=== PATIENT | female | born 1940 | race Caucasian/White ===

== ENCOUNTER 2022-08-11 18:37 | Inpatient (IN) ==
[2022-08-11] MEDS ORDERED: SODIUM CHLORIDE 0.9% 500 ML IV STA (19:17)
[2022-08-11 19:47] LABS: Alanine Aminotransferase 21 U/L (13-56); Albumin 3.7 G/DL (3.4-5.0); Alkaline Phosphatase 91 U/L (45-117); Aspartate Amino Transferase 39 U/L (0-37); Blood Urea Nitrogen 48 MG/DL (7-18); Calcium 9.9 MG/DL (8.5-10.1); Carbon Dioxide 23 MMOL/L (21-32); Chloride 101 MMOL/L (98-107); Glucose 191 MG/DL (74-106); Potassium 4.7 MMOL/L (3.5-5.1); Sodium 136 MMOL/L (136-145)
[2022-08-11 19:47] LABS: Basophils % 0.2 % (0.0-0.8); Eosinophils % 0.1 % (0.00-10.9); Hematocrit 35.9 VOL% (35.7-47.0); Hemoglobin 11.6 GM/DL (12.0-16.0); Immature Granulocytes % 0.4 %; Immature Granulocytes Absolute 0.06 #; Lymphocytes # 1.8 10*3/uL (1.4-4.0); Mean Corpuscular HGB Conc 32.3 GM/DL (32-36); Mean Corpuscular Volume 93.5 FL (87-102); Mean Platelet Volume 11.2 FL (9.6-12.0); Monocytes # 1.4 10*3/uL (0.11-0.8); Monocytes % 8.6 % (1.7-12.7); Neutrophils % 79.7 % (38.7-73.9); Platelet Count 364 T/CUMM (130-400); Red Blood Count 3.84 MC/CUMM (3.8-5.5); Red Cell Distribution Width 13.9 % (9.3-17.3); White Blood Count 16.5 T/CUMM (4-12)
[2022-08-11 19:57] LABS: INR 0.9; PT Patient Result 10.3 SECS (10.1-12.1)
[2022-08-11] MEDS ORDERED: SODIUM CHLORIDE 0.9% 1,450 ML IV STA (20:16)
[2022-08-11] MEDS ORDERED: VANCOMYCIN INJ 1,000 MG in SODIUM CHLORIDE 0.9% 250 ML IV STA (20:19)
[2022-08-11] MEDS ORDERED: ONDANSETRON 4 MG/2 ML VIAL IV PRN (20:29)
[2022-08-11] MEDS ORDERED: SIMETHICONE CHEW 125 MG TABLET PO PRN (20:29)
[2022-08-11 20:32] LABS: Bacteria,Urine Occasional /HPF (Few); Mucus,Urine Occasional /LPF (Occasional); RBC,Urine 4 /HPF (0-4); Squamous Epithelial Cell,Urine Occasional /HPF (0-10)
[2022-08-11 20:34] LABS: Bilirubin,Urine Small mg/dL (Negative); Blood, Urine Negative (Negative); Glucose,Urine (UA) Negative (Negative); Ketones,Urine 15 mg/dL (Negative); Nitrite,Urine Negative (Negative); Protein,Urine 30 mg/dL (Negative); Urine Appearance Clear (Clear); Urine Color Yellow (Yellow); Urine Specific Gravity 1.025 (1.001-1.035); Urine Urobilinogen 0.2 eU/dL (<2.0); Urine pH 5.5 (4.5-8.0)
[2022-08-11 20:47] LABS: Barbiturates Screen,Urine Negative (Negative); Benzodiazepines Screen,Urine Negative (Negative); Cannabinoid Screen,Urine Negative (Negative); Opiate Screen,Urine Positive (Negative); Phencyclidine Screen,Urine Negative (Negative)
[2022-08-11] MEDS: HEPARIN 5,000 UNIT/1 ML VIAL SUBCUT SCH (22:01)
[2022-08-11] MEDS: DOCUSATE SODIUM 100 MG CAPSULE PO SCH (22:01)
[2022-08-11] MEDS ORDERED: METOPROLOL TARTRATE 5 MG/5 ML VIAL IV PRN (22:49)
[2022-08-11] MEDS: SODIUM CHLORIDE 0.9% 1,000 ML IV SCH (23:10)
[2022-08-12 01:31] LABS: Basophils % 0.2 % (0.0-0.8); Eosinophils % 0.2 % (0.00-10.9); Hematocrit 34.5 VOL% (35.7-47.0); Immature Granulocytes % 0.3 %; Immature Granulocytes Absolute 0.04 #; Lymphocytes # 1.1 10*3/uL (1.4-4.0); Lymphocytes % 9.3 % (21.3-54.2); Mean Corpuscular HGB Conc 31.9 GM/DL (32-36); Mean Corpuscular Volume 93.2 FL (87-102); Mean Platelet Volume 11.2 FL (9.6-12.0); Platelet Count 250 T/CUMM (130-400); Red Cell Distribution Width 13.9 % (9.3-17.3)
[2022-08-12 01:57] LABS: Calcium 8.3 MG/DL (8.5-10.1); Osmolality,Calculated 287.8 MOS/KG (273-304); Potassium 3.6 MMOL/L (3.5-5.1); Thyroid Stimulating Hormone 0.614 uIU/ml (0.358-3.74)
[2022-08-12] MEDS ORDERED: GLUCAGON 1 MG VIAL IM PRN (07:12)
[2022-08-12] MEDS ORDERED: DEXTROSE 10% 250 ML BAG IV PRN (07:12)
[2022-08-12] MEDS: PANTOPRAZOLE 40 MG TABLET PO SCH (08:29)
[2022-08-12] MEDS: DOCUSATE SODIUM 100 MG CAPSULE PO SCH ×2 (08:29→21:28)
[2022-08-12] MEDS: INSULIN LISPRO 100 UNIT/ML SUBCUT SCH ×4 (08:30→21:34)
[2022-08-12] MEDS: HEPARIN 5,000 UNIT/1 ML VIAL SUBCUT SCH ×2 (08:35→21:28)
[2022-08-12] MEDS ORDERED: ROSUVASTATIN 10 MG TABLET PO SCH (09:00)
[2022-08-12] MEDS ORDERED: ASPIRIN EC 81 MG TABLET PO SCH (09:00)
[2022-08-12] MEDS: SODIUM CHLORIDE 0.9% 1,000 ML IV SCH ×2 (10:14→22:57)
[2022-08-12] MEDS: cefTRIAXone 1,000 MG in SODIUM CHLORIDE 0.9% 100 ML IV SCH (21:27)
[2022-08-13] MEDS: hydrALAZINE 20 MG/1 ML VIAL IV PRN ×4 (00:08→16:50)
[2022-08-13] MEDS ORDERED: LABETALOL 20 MG/4 ML SYRINGE IV ONE (04:33)
[2022-08-13] MEDS: INSULIN LISPRO 100 UNIT/ML SUBCUT SCH ×4 (07:37→22:46)
[2022-08-13] MEDS: DOCUSATE SODIUM 100 MG CAPSULE PO SCH ×2 (08:21→22:45)
[2022-08-13] MEDS: HEPARIN 5,000 UNIT/1 ML VIAL SUBCUT SCH ×2 (08:21→22:46)
[2022-08-13] MEDS: PANTOPRAZOLE 40 MG TABLET PO SCH (08:21)
[2022-08-13] MEDS: SODIUM CHLORIDE 0.9% 1,000 ML IV SCH (11:37)
[2022-08-13] MEDS ORDERED: guaiFENesin 200 MG/10 ML UDCUP PO PRN (15:03)
[2022-08-13 16:26] LABS: Folate > 24.00 NG/ML (5.38-24.0); Vitamin B12 1023 PG/ML (211-911)
[2022-08-13 16:33] LABS: % Iron Saturation 10.5 % (18-50); Ferritin 159.8 ng/mL (8-252)
[2022-08-13] MEDS: AZITHROMYCIN INJ 500 MG in SODIUM CHLORIDE 0.9% 250 ML IV SCH (16:57)
[2022-08-13] MEDS: cefTRIAXone 1,000 MG in SODIUM CHLORIDE 0.9% 100 ML IV SCH (22:34)
[2022-08-13] MEDS: ASCORBIC ACID 500 MG TABLET PO SCH (22:45)
[2022-08-13] MEDS: ACETAMINOPHEN 325 MG TABLET PO PRN (22:46)
[2022-08-14] MEDS: LEVOTHYROXINE 75 MCG TABLET PO SCH (06:25)
[2022-08-14] MEDS: SODIUM CHLORIDE 0.9% 1,000 ML IV SCH ×2 (06:25→22:57)
[2022-08-14 06:45] LABS: Basophils % 0.3 % (0.0-0.8); Eosinophils # 0.1 10*3/uL (0.0-0.87); Eosinophils % 0.8 % (0.00-10.9); Hematocrit 31.5 VOL% (35.7-47.0); Hemoglobin 10.3 GM/DL (12.0-16.0); Immature Granulocytes % 0.4 %; Immature Granulocytes Absolute 0.03 #; Mean Corpuscular HGB Conc 32.7 GM/DL (32-36); Mean Platelet Volume 12.1 FL (9.6-12.0); Monocytes # 0.7 10*3/uL (0.11-0.8); Monocytes % 9.5 % (1.7-12.7); Platelet Count 297 T/CUMM (130-400); Red Blood Count 3.46 MC/CUMM (3.8-5.5); Red Cell Distribution Width 13.8 % (9.3-17.3); White Blood Count 7.5 T/CUMM (4-12)
[2022-08-14 06:59] LABS: Calcium 9.3 MG/DL (8.5-10.1); Osmolality,Calculated 283.1 MOS/KG (273-304); Potassium 3.3 MMOL/L (3.5-5.1)
[2022-08-14 07:03] LABS: VLDL Cholesterol 18.4 MG/DL
[2022-08-14] MEDS: INSULIN LISPRO 100 UNIT/ML SUBCUT SCH ×4 (07:56→21:22)
[2022-08-14] MEDS: CHOLECALCIFEROL 400 UNIT TABLET PO SCH (09:21)
[2022-08-14] MEDS: HEPARIN 5,000 UNIT/1 ML VIAL SUBCUT SCH ×2 (09:21→21:22)
[2022-08-14] MEDS: DOCUSATE SODIUM 100 MG CAPSULE PO SCH ×2 (09:22→21:22)
[2022-08-14] MEDS: hydrALAZINE 20 MG/1 ML VIAL IV PRN (09:22)
[2022-08-14] MEDS: ZINC SULFATE 220 MG CAPSULE PO SCH (09:22)
[2022-08-14] MEDS: CETIRIZINE 10 MG TABLET PO SCH (09:22)
[2022-08-14] MEDS: ASCORBIC ACID 500 MG TABLET PO SCH ×2 (09:22→21:23)
[2022-08-14] MEDS: PANTOPRAZOLE 40 MG TABLET PO SCH (09:22)
[2022-08-14] MEDS ORDERED: POTASSIUM CHLORIDE 20 MEQ TABLET PO ONE (10:25)
[2022-08-14] MEDS: AZITHROMYCIN INJ 500 MG in SODIUM CHLORIDE 0.9% 250 ML IV SCH (18:27)
[2022-08-14] MEDS: ACETAMINOPHEN 325 MG TABLET PO PRN (21:23)
[2022-08-15] MEDS: hydrALAZINE 20 MG/1 ML VIAL IV PRN ×3 (01:15→15:32)
[2022-08-15] MEDS: LEVOTHYROXINE 75 MCG TABLET PO SCH (06:07)
[2022-08-15 06:38] LABS: Basophils % 0.3 % (0.0-0.8); Eosinophils # 0.1 10*3/uL (0.0-0.87); Eosinophils % 1.9 % (0.00-10.9); Hemoglobin 9.3 GM/DL (12.0-16.0); Immature Granulocytes % 0.5 %; Immature Granulocytes Absolute 0.03 #; Lymphocytes # 1.3 10*3/uL (1.4-4.0); Lymphocytes % 21.7 % (21.3-54.2); Mean Corpuscular HGB Conc 33.2 GM/DL (32-36); Mean Corpuscular Volume 90.9 FL (87-102); Mean Platelet Volume 11.8 FL (9.6-12.0); Monocytes # 0.7 10*3/uL (0.11-0.8); Monocytes % 12.3 % (1.7-12.7); Neutrophils % 63.3 % (38.7-73.9); Platelet Count 322 T/CUMM (130-400); Red Blood Count 3.08 MC/CUMM (3.8-5.5); White Blood Count 5.8 T/CUMM (4-12)
[2022-08-15 06:54] LABS: Osmolality,Calculated 281.3 MOS/KG (273-304); Potassium 3.2 MMOL/L (3.5-5.1)
[2022-08-15] MEDS: ASCORBIC ACID 500 MG TABLET PO SCH ×2 (10:13→23:19)
[2022-08-15] MEDS: ZINC SULFATE 220 MG CAPSULE PO SCH (10:13)
[2022-08-15] MEDS: CETIRIZINE 10 MG TABLET PO SCH (10:14)
[2022-08-15] MEDS: DOCUSATE SODIUM 100 MG CAPSULE PO SCH ×2 (10:14→21:18)
[2022-08-15] MEDS: CHOLECALCIFEROL 400 UNIT TABLET PO SCH (10:14)
[2022-08-15] MEDS: HEPARIN 5,000 UNIT/1 ML VIAL SUBCUT SCH ×2 (10:15→21:18)
[2022-08-15] MEDS: PANTOPRAZOLE 40 MG TABLET PO SCH (10:15)
[2022-08-15] MEDS: INSULIN LISPRO 100 UNIT/ML SUBCUT SCH ×4 (10:15→21:19)
[2022-08-15] MEDS: amLODIPine 2.5 MG TABLET PO SCH (12:45)
[2022-08-15] MEDS: SODIUM CHLORIDE 0.9% 1,000 ML IV SCH (12:45)
[2022-08-15] MEDS ORDERED: POTASSIUM CHLORIDE 20 MEQ TABLET PO ONE (13:09)
[2022-08-15] MEDS ORDERED: CARBOXYMETHYLCELLULOSE 1% OPH SOLN BOTH EYES PRN (13:19)
[2022-08-15] MEDS: AZITHROMYCIN INJ 500 MG in SODIUM CHLORIDE 0.9% 250 ML IV SCH (16:32)
[2022-08-15] MEDS: traZODone 50 MG TABLET PO SCH (21:18)
[2022-08-16] MEDS: LEVOTHYROXINE 75 MCG TABLET PO SCH (06:17)
[2022-08-16 06:19] LABS: Basophils % 0.6 % (0.0-0.8); Eosinophils # 0.2 10*3/uL (0.0-0.87); Hematocrit 29.2 VOL% (35.7-47.0); Hemoglobin 9.5 GM/DL (12.0-16.0); Immature Granulocytes % 0.2 %; Immature Granulocytes Absolute 0.01 #; Lymphocytes # 1.3 10*3/uL (1.4-4.0); Lymphocytes % 24.1 % (21.3-54.2); Mean Corpuscular HGB Conc 32.5 GM/DL (32-36); Mean Corpuscular Volume 91.8 FL (87-102); Mean Platelet Volume 11.7 FL (9.6-12.0); Monocytes # 0.7 10*3/uL (0.11-0.8); Monocytes % 12.2 % (1.7-12.7); Neutrophils % 59.9 % (38.7-73.9); Platelet Count 318 T/CUMM (130-400); Red Blood Count 3.18 MC/CUMM (3.8-5.5); Red Cell Distribution Width 14.1 % (9.3-17.3); White Blood Count 5.3 T/CUMM (4-12)
[2022-08-16 06:35] LABS: Calcium 9.2 MG/DL (8.5-10.1); Potassium 3.4 MMOL/L (3.5-5.1)
[2022-08-16] MEDS: INSULIN LISPRO 100 UNIT/ML SUBCUT SCH ×4 (08:30→21:49)
[2022-08-16] MEDS: CHOLECALCIFEROL 400 UNIT TABLET PO SCH (09:07)
[2022-08-16] MEDS: DOCUSATE SODIUM 100 MG CAPSULE PO SCH ×2 (09:08→22:05)
[2022-08-16] MEDS: CETIRIZINE 10 MG TABLET PO SCH (09:08)
[2022-08-16] MEDS: ASCORBIC ACID 500 MG TABLET PO SCH ×2 (09:08→22:06)
[2022-08-16] MEDS: DULoxetine 30 MG CAPSULE PO SCH (09:08)
[2022-08-16] MEDS: amLODIPine 2.5 MG TABLET PO SCH (09:08)
[2022-08-16] MEDS: ZINC SULFATE 220 MG CAPSULE PO SCH (09:08)
[2022-08-16] MEDS: hydrALAZINE 20 MG/1 ML VIAL IV PRN (09:09)
[2022-08-16] MEDS: PANTOPRAZOLE 40 MG TABLET PO SCH (09:10)
[2022-08-16] MEDS: HEPARIN 5,000 UNIT/1 ML VIAL SUBCUT SCH ×2 (09:10→22:07)
[2022-08-16] MEDS ORDERED: POTASSIUM CHLORIDE 20 MEQ TABLET PO ONE (11:00)
[2022-08-16] MEDS: MAGNESIUM OXIDE 400 MG TABLET PO SCH ×2 (11:45→22:06)
[2022-08-16] MEDS: AZITHROMYCIN INJ 500 MG in SODIUM CHLORIDE 0.9% 250 ML IV SCH (16:45)
[2022-08-16] MEDS: traZODone 50 MG TABLET PO SCH (22:05)
[2022-08-17] MEDS: LEVOTHYROXINE 75 MCG TABLET PO SCH (07:31)
[2022-08-17] MEDS: DOCUSATE SODIUM 100 MG CAPSULE PO SCH ×2 (08:56→22:41)
[2022-08-17] MEDS: CHOLECALCIFEROL 400 UNIT TABLET PO SCH (08:56)
[2022-08-17] MEDS: amLODIPine 2.5 MG TABLET PO SCH (08:56)
[2022-08-17] MEDS: MAGNESIUM OXIDE 400 MG TABLET PO SCH ×2 (08:56→22:41)
[2022-08-17] MEDS: ASCORBIC ACID 500 MG TABLET PO SCH ×2 (08:56→22:41)
[2022-08-17] MEDS: CETIRIZINE 10 MG TABLET PO SCH (08:57)
[2022-08-17] MEDS: HEPARIN 5,000 UNIT/1 ML VIAL SUBCUT SCH ×2 (08:57→22:42)
[2022-08-17] MEDS: ZINC SULFATE 220 MG CAPSULE PO SCH (08:57)
[2022-08-17] MEDS: DULoxetine 30 MG CAPSULE PO SCH (08:57)
[2022-08-17] MEDS: INSULIN LISPRO 100 UNIT/ML SUBCUT SCH ×4 (10:02→21:50)
[2022-08-17] MEDS: PANTOPRAZOLE 40 MG TABLET PO SCH (10:03)
[2022-08-17] MEDS ORDERED: POLYVINYL 0.5%/POVIDONE 0.6% OPH SOLN 15 ML BOTTLE BOTH EYES PRN (10:42)
[2022-08-17] MEDS: AZITHROMYCIN INJ 500 MG in SODIUM CHLORIDE 0.9% 250 ML IV SCH (18:16)
[2022-08-17] MEDS: traZODone 50 MG TABLET PO SCH (22:41)
[2022-08-18] MEDS: hydrALAZINE 20 MG/1 ML VIAL IV PRN ×2 (04:40→09:16)
[2022-08-18] MEDS: LEVOTHYROXINE 75 MCG TABLET PO SCH (05:37)
[2022-08-18 05:45] LABS: Osmolality,Calculated 283.1 MOS/KG (273-304); Potassium 3.9 MMOL/L (3.5-5.1)
[2022-08-18] MEDS: INSULIN LISPRO 100 UNIT/ML SUBCUT SCH ×4 (07:50→21:10)
[2022-08-18] MEDS: CETIRIZINE 10 MG TABLET PO SCH (08:42)
[2022-08-18] MEDS: ASCORBIC ACID 500 MG TABLET PO SCH ×2 (08:42→20:56)
[2022-08-18] MEDS: MAGNESIUM OXIDE 400 MG TABLET PO SCH ×2 (08:42→20:56)
[2022-08-18] MEDS: DOCUSATE SODIUM 100 MG CAPSULE PO SCH ×2 (08:42→20:56)
[2022-08-18] MEDS: amLODIPine 2.5 MG TABLET PO SCH (08:42)
[2022-08-18] MEDS: HEPARIN 5,000 UNIT/1 ML VIAL SUBCUT SCH ×2 (08:42→20:57)
[2022-08-18] MEDS: ZINC SULFATE 220 MG CAPSULE PO SCH (08:42)
[2022-08-18] MEDS: DULoxetine 30 MG CAPSULE PO SCH (08:42)
[2022-08-18] MEDS: CHOLECALCIFEROL 400 UNIT TABLET PO SCH (08:43)
[2022-08-18] MEDS: PANTOPRAZOLE 40 MG TABLET PO SCH (08:43)
[2022-08-18 11:46] LABS: Mycoplasma pneumoniae Ab Inter SEE COMMENTS; Mycoplasma pneumoniae Ab, IgG Positive (Negative); Mycoplasma pneumoniae Ab, IgM Negative (Negative)
[2022-08-18] MEDS: traZODone 50 MG TABLET PO SCH (20:56)
[2022-08-19] MEDS: hydrALAZINE 20 MG/1 ML VIAL IV PRN (00:56)
[2022-08-19] MEDS: LEVOTHYROXINE 75 MCG TABLET PO SCH (05:36)
[2022-08-19] MEDS: INSULIN LISPRO 100 UNIT/ML SUBCUT SCH ×4 (07:38→20:59)
[2022-08-19] MEDS: HEPARIN 5,000 UNIT/1 ML VIAL SUBCUT SCH ×2 (08:57→20:04)
[2022-08-19] MEDS: DOCUSATE SODIUM 100 MG CAPSULE PO SCH ×2 (08:57→20:04)
[2022-08-19] MEDS: CETIRIZINE 10 MG TABLET PO SCH (08:57)
[2022-08-19] MEDS: MAGNESIUM OXIDE 400 MG TABLET PO SCH ×2 (08:57→20:05)
[2022-08-19] MEDS: PANTOPRAZOLE 40 MG TABLET PO SCH (08:57)
[2022-08-19] MEDS: ASCORBIC ACID 500 MG TABLET PO SCH ×2 (08:57→20:05)
[2022-08-19] MEDS: CHOLECALCIFEROL 400 UNIT TABLET PO SCH (08:58)
[2022-08-19] MEDS: DULoxetine 30 MG CAPSULE PO SCH (08:58)
[2022-08-19] MEDS: amLODIPine 2.5 MG TABLET PO SCH (08:58)
[2022-08-19] MEDS: ZINC SULFATE 220 MG CAPSULE PO SCH (09:01)
[2022-08-19] MEDS: ACETAMINOPHEN 325 MG TABLET PO PRN (18:33)
[2022-08-19] MEDS: traZODone 50 MG TABLET PO SCH (20:04)
[2022-08-20] MEDS: LEVOTHYROXINE 75 MCG TABLET PO SCH (06:38)
[2022-08-20] MEDS: hydrALAZINE 20 MG/1 ML VIAL IV PRN (06:38)
[2022-08-20] MEDS: INSULIN LISPRO 100 UNIT/ML SUBCUT SCH ×4 (08:09→20:07)
[2022-08-20] MEDS: DULoxetine 30 MG CAPSULE PO SCH (08:46)
[2022-08-20] MEDS: PANTOPRAZOLE 40 MG TABLET PO SCH (08:46)
[2022-08-20] MEDS: CHOLECALCIFEROL 400 UNIT TABLET PO SCH (08:46)
[2022-08-20] MEDS: ZINC SULFATE 220 MG CAPSULE PO SCH (08:46)
[2022-08-20] MEDS: ASCORBIC ACID 500 MG TABLET PO SCH ×2 (08:46→20:39)
[2022-08-20] MEDS: CETIRIZINE 10 MG TABLET PO SCH (08:46)
[2022-08-20] MEDS: amLODIPine 2.5 MG TABLET PO SCH (08:47)
[2022-08-20] MEDS: MAGNESIUM OXIDE 400 MG TABLET PO SCH ×2 (08:47→20:39)
[2022-08-20] MEDS: DOCUSATE SODIUM 100 MG CAPSULE PO SCH ×2 (08:47→20:39)
[2022-08-20] MEDS: HEPARIN 5,000 UNIT/1 ML VIAL SUBCUT SCH ×2 (08:47→20:38)
[2022-08-20] MEDS: RIVASTIGMINE 4.6 MG/24 HR PATCH TRANSDERM SCH (12:26)
[2022-08-20] MEDS: traZODone 50 MG TABLET PO SCH (20:39)
[2022-08-21] MEDS: LEVOTHYROXINE 75 MCG TABLET PO SCH (05:37)
[2022-08-21] MEDS: CHOLECALCIFEROL 400 UNIT TABLET PO SCH (09:03)
[2022-08-21] MEDS: CETIRIZINE 10 MG TABLET PO SCH (09:03)
[2022-08-21] MEDS: RIVASTIGMINE 4.6 MG/24 HR PATCH TRANSDERM SCH (09:03)
[2022-08-21] MEDS: amLODIPine 2.5 MG TABLET PO SCH (09:03)
[2022-08-21] MEDS: MAGNESIUM OXIDE 400 MG TABLET PO SCH ×2 (09:03→21:30)
[2022-08-21] MEDS: DOCUSATE SODIUM 100 MG CAPSULE PO SCH ×2 (09:04→21:30)
[2022-08-21] MEDS: PANTOPRAZOLE 40 MG TABLET PO SCH (09:04)
[2022-08-21] MEDS: DULoxetine 30 MG CAPSULE PO SCH (09:04)
[2022-08-21] MEDS: ASCORBIC ACID 500 MG TABLET PO SCH ×2 (09:04→21:29)
[2022-08-21] MEDS: ZINC SULFATE 220 MG CAPSULE PO SCH (09:04)
[2022-08-21] MEDS: HEPARIN 5,000 UNIT/1 ML VIAL SUBCUT SCH ×2 (09:06→21:30)
[2022-08-21] MEDS: INSULIN LISPRO 100 UNIT/ML SUBCUT SCH ×5 (09:08→21:42)
[2022-08-21] MEDS: traZODone 50 MG TABLET PO SCH (21:29)
[2022-08-22] MEDS: LEVOTHYROXINE 75 MCG TABLET PO SCH (06:17)
[2022-08-22] MEDS: INSULIN LISPRO 100 UNIT/ML SUBCUT SCH ×4 (10:33→21:56)
[2022-08-22] MEDS: DULoxetine 30 MG CAPSULE PO SCH (11:12)
[2022-08-22] MEDS: PANTOPRAZOLE 40 MG TABLET PO SCH (11:13)
[2022-08-22] MEDS: MAGNESIUM OXIDE 400 MG TABLET PO SCH ×2 (11:15→20:57)
[2022-08-22] MEDS: amLODIPine 2.5 MG TABLET PO SCH (11:16)
[2022-08-22] MEDS: CETIRIZINE 10 MG TABLET PO SCH (11:17)
[2022-08-22] MEDS: CHOLECALCIFEROL 400 UNIT TABLET PO SCH (11:17)
[2022-08-22] MEDS: ASCORBIC ACID 500 MG TABLET PO SCH ×2 (11:18→20:57)
[2022-08-22] MEDS: ZINC SULFATE 220 MG CAPSULE PO SCH (11:20)
[2022-08-22] MEDS: RIVASTIGMINE 4.6 MG/24 HR PATCH TRANSDERM SCH (11:23)
[2022-08-22] MEDS: DOCUSATE SODIUM 100 MG CAPSULE PO SCH ×2 (11:23→20:57)
[2022-08-22] MEDS: HEPARIN 5,000 UNIT/1 ML VIAL SUBCUT SCH ×2 (11:30→20:58)
[2022-08-22] MEDS: traZODone 50 MG TABLET PO SCH (20:57)
[2022-08-23] MEDS: LEVOTHYROXINE 75 MCG TABLET PO SCH (06:07)
[2022-08-23] MEDS: INSULIN LISPRO 100 UNIT/ML SUBCUT SCH ×4 (08:38→21:37)
[2022-08-23] MEDS: amLODIPine 2.5 MG TABLET PO SCH (08:40)
[2022-08-23] MEDS: ASCORBIC ACID 500 MG TABLET PO SCH ×2 (08:40→21:25)
[2022-08-23] MEDS: DULoxetine 30 MG CAPSULE PO SCH (08:40)
[2022-08-23] MEDS: PANTOPRAZOLE 40 MG TABLET PO SCH (08:41)
[2022-08-23] MEDS: ZINC SULFATE 220 MG CAPSULE PO SCH (08:41)
[2022-08-23] MEDS: CETIRIZINE 10 MG TABLET PO SCH (08:41)
[2022-08-23] MEDS: DOCUSATE SODIUM 100 MG CAPSULE PO SCH ×2 (08:41→21:25)
[2022-08-23] MEDS: CHOLECALCIFEROL 400 UNIT TABLET PO SCH (08:41)
[2022-08-23] MEDS: MAGNESIUM OXIDE 400 MG TABLET PO SCH ×2 (08:41→21:25)
[2022-08-23] MEDS: RIVASTIGMINE 4.6 MG/24 HR PATCH TRANSDERM SCH (08:42)
[2022-08-23] MEDS: HEPARIN 5,000 UNIT/1 ML VIAL SUBCUT SCH ×2 (11:28→21:25)
[2022-08-23] MEDS: traZODone 50 MG TABLET PO SCH (21:25)
[2022-08-23] MEDS: diphenhydrAMINE CAP 25 MG CAPSULE PO PRN (21:25)
[2022-08-24 05:59] LABS: Basophils % 0.4 % (0.0-0.8); Eosinophils # 0.2 10*3/uL (0.0-0.87); Hematocrit 26.2 VOL% (35.7-47.0); Immature Granulocytes % 0.4 %; Immature Granulocytes Absolute 0.02 #; Lymphocytes # 1.3 10*3/uL (1.4-4.0); Lymphocytes % 24.1 % (21.3-54.2); Mean Corpuscular HGB Conc 30.5 GM/DL (32-36); Mean Corpuscular Volume 94.2 FL (87-102); Mean Platelet Volume 11.7 FL (9.6-12.0); Monocytes # 0.7 10*3/uL (0.11-0.8); Monocytes % 12.2 % (1.7-12.7); Neutrophils % 58.9 % (38.7-73.9); Platelet Count 306 T/CUMM (130-400); Red Blood Count 2.78 MC/CUMM (3.8-5.5); Red Cell Distribution Width 14.4 % (9.3-17.3); White Blood Count 5.3 T/CUMM (4-12)
[2022-08-24 06:16] LABS: Calcium 9.4 MG/DL (8.5-10.1); Osmolality,Calculated 275.7 MOS/KG (273-304); Potassium 4.5 MMOL/L (3.5-5.1)
[2022-08-24] MEDS: LEVOTHYROXINE 75 MCG TABLET PO SCH (06:19)
[2022-08-24] MEDS: INSULIN LISPRO 100 UNIT/ML SUBCUT SCH ×4 (08:04→21:00)
[2022-08-24] MEDS: HEPARIN 5,000 UNIT/1 ML VIAL SUBCUT SCH ×2 (08:39→21:00)
[2022-08-24] MEDS: RIVASTIGMINE 4.6 MG/24 HR PATCH TRANSDERM SCH (08:39)
[2022-08-24] MEDS: ASCORBIC ACID 500 MG TABLET PO SCH ×2 (08:39→21:00)
[2022-08-24] MEDS: CETIRIZINE 10 MG TABLET PO SCH (08:40)
[2022-08-24] MEDS: DOCUSATE SODIUM 100 MG CAPSULE PO SCH ×2 (08:40→21:00)
[2022-08-24] MEDS: PANTOPRAZOLE 40 MG TABLET PO SCH (08:40)
[2022-08-24] MEDS: ZINC SULFATE 220 MG CAPSULE PO SCH (08:40)
[2022-08-24] MEDS: DULoxetine 30 MG CAPSULE PO SCH (08:40)
[2022-08-24] MEDS: MAGNESIUM OXIDE 400 MG TABLET PO SCH ×2 (08:40→21:00)
[2022-08-24] MEDS: amLODIPine 2.5 MG TABLET PO SCH (08:40)
[2022-08-24] MEDS: CHOLECALCIFEROL 400 UNIT TABLET PO SCH (08:40)
[2022-08-24] MEDS: diphenhydrAMINE CAP 25 MG CAPSULE PO PRN (10:58)
[2022-08-24] MEDS: ZINC OXIDE 16% PASTE 57 GM TUBE TOP SCH ×2 (17:18→21:00)
[2022-08-24] MEDS: traZODone 50 MG TABLET PO SCH (21:00)
[2022-08-25] MEDS: LEVOTHYROXINE 75 MCG TABLET PO SCH (05:50)
[2022-08-25] MEDS: INSULIN LISPRO 100 UNIT/ML SUBCUT SCH ×2 (08:05→13:39)
[2022-08-25] MEDS: RIVASTIGMINE 4.6 MG/24 HR PATCH TRANSDERM SCH (08:27)
[2022-08-25] MEDS: amLODIPine 2.5 MG TABLET PO SCH (08:27)
[2022-08-25] MEDS: CETIRIZINE 10 MG TABLET PO SCH (08:27)
[2022-08-25] MEDS: PANTOPRAZOLE 40 MG TABLET PO SCH (08:27)
[2022-08-25] MEDS: ASCORBIC ACID 500 MG TABLET PO SCH (08:27)
[2022-08-25] MEDS: MAGNESIUM OXIDE 400 MG TABLET PO SCH (08:27)
[2022-08-25] MEDS: DULoxetine 30 MG CAPSULE PO SCH (08:27)
[2022-08-25] MEDS: DOCUSATE SODIUM 100 MG CAPSULE PO SCH (08:27)
[2022-08-25] MEDS: ZINC SULFATE 220 MG CAPSULE PO SCH (08:27)
[2022-08-25] MEDS: CHOLECALCIFEROL 400 UNIT TABLET PO SCH (08:27)
[2022-08-25] MEDS: ZINC OXIDE 16% PASTE 57 GM TUBE TOP SCH (08:28)
[2022-08-25] MEDS: HEPARIN 5,000 UNIT/1 ML VIAL SUBCUT SCH (08:28)
[2022-08-25 12:56] VITALS: BP 168/73
== END 2022-08-25 16:00 | disposition home health service (06) | DRG 884 ==
LOC: N.ED 18:37 → N.EDINP 18:37 → SUATTDRO 23:12 → N.5E 23:17 → SUATTDRO 08-12 13:25 → N.2E 08-17 11:31
PROVIDERS: ADMIT Internal Medicine; ATTEND Internal Medicine